=== PATIENT | male | born 1965 | race African-American/Black ===

== ENCOUNTER 2022-05-17 13:23 | Inpatient (IN) | payer MEDICARE, MEDICAID ==
[~2022-05-17] VITALS: Ht 195.6 cm; Wt 74.9 kg
[2022-05-17] MEDS ORDERED: METHYLPREDNISOLONE SOD SUCC 125 MG/2 ML VIAL IV STA (14:21)
[2022-05-17] MEDS ORDERED: IPRATROPIUM BROMIDE (0.02%) 0.5MG/2.5ML NEB HHN STA (14:21)
[2022-05-17] MEDS ORDERED: AZITHROMYCIN 500MG/250ML 250 ML IV ONE (14:30)
[2022-05-17] MEDS ORDERED: SODIUM CHLORIDE 0.9% 1000ML BAG (SEPSIS BOLUS) IV ONE (14:30)
[2022-05-17] MEDS ORDERED: CEFTRIAXONE 1 G PREMIX 50 ML IV ONE (14:30)
[2022-05-17] MEDS ORDERED: MAGNESIUM 2 G PREMIX 50 ML IV ONE (14:30)
[2022-05-17] MEDS ORDERED: ALBUTEROL (0.083%) 2.5MG/3ML NEB HHN SCH (14:30)
[2022-05-17 15:16] LABS: BG CARBOXYHEMOGLOBIN 0.7 % (0.5-1.5); BG DEOXYHEMOGLOBIN 0.7 % (0.0-5.0); BG FRACTION INSPIRED OXYGEN 80; BG HCO3 ACT 21.5 mmol/L (22.0-26.0); BG METHEMOGLOBIN 0.6 % (0.0-1.5); BG OXYGEN SATURATION 99.3 % (92.0-98.5); BG PCO2 44.9 mmHg (35.0-45.0); BG PH 7.298 (7.350-7.450); BG PO2 235.8 mmHg (75.0-100.0); BG SAMPLE SITE RIGHT BRACHIAL; BG TOTAL HEMOGLOBIN 17.9 g/dL (12.0-18.0); BG VENT MODE MASK - BIPAP
[2022-05-17 16:38] LABS: HEMATOCRIT. 52.1 % (42.0-52.0); HEMOGLOBIN. 17.3 g/dL (14.0-18.0); MEAN CORPUSCULAR HEMOGLOBIN 31.6 pg (28.0-32.0); MEAN CORPUSCULAR VOLUME 95.1 fL (80.0-94.0); MEAN PLATELET VOLUME 6.8 fl (7.4-10.4); PLATELET 299 x1000/uL (130-400); RED BLOOD CELL COUNT 5.48 mill/uL (4.7-6.1); RED CELL DISTRIBUTION WIDTH 14.2 % (11.6-14.6)
[2022-05-17] MEDS ORDERED: METHYLPREDNISOLONE SOD SUCC 125 MG/2 ML VIAL IV SCH (16:45)
[2022-05-17] MEDS ORDERED: CEFTRIAXONE 1 G PREMIX 50 ML IV SCH (16:45)
[2022-05-17] MEDS ORDERED: AZITHROMYCIN 500MG/250ML 250 ML IV SCH (16:45)
[2022-05-17 16:46] LABS: CHLORIDE 107 mEq/L (98-107)
[2022-05-17 17:14] LABS: PLATELET ESTIMATE NORMAL
[2022-05-17] MEDS ORDERED: ASPIRIN 81MG TABLET PO ONE (17:45)
[2022-05-17] MEDS ORDERED: ENOXAPARIN 100MG/ML SYR SUBCUT NR (17:45)
[2022-05-18] VITALS (9 sets, daily range): BP systolic 115–148; BP diastolic 43–105
[2022-05-18] MEDS ORDERED: MORPHINE SULFATE 2 MG/ML CPJ (NOT FOR IM USE) IV PRN (01:15)
[2022-05-18] MEDS: ISOSORBIDE MONONITRATE 30MG TABLET SR 24HR PO SCH ×2 (02:43→08:46)
[2022-05-18] MEDS: METOPROLOL TARTRATE 25MG TABLET PO SCH ×3 (02:44→16:45)
[2022-05-18] MEDS: ASPIRIN 81MG TABLET PO SCH ×2 (02:44→08:46)
[2022-05-18 03:54] LABS: BASOPHILS % 0.2 % (0.0-2.0); EOSINOPHILS % 0.1 % (0.0-5.0); HEMATOCRIT. 43.8 % (42.0-52.0); HEMOGLOBIN. 14.9 g/dL (14.0-18.0); LYMPHOCYTES % 9.7 % (20.0-50.0); MEAN CORPUSCULAR HEMOGLOBIN 31.8 pg (28.0-32.0); MEAN CORPUSCULAR VOLUME 93.7 fL (80.0-94.0); MEAN PLATELET VOLUME 7.1 fl (7.4-10.4); MONOCYTES % 2.7 % (2.0-8.0); NEUTROPHILS % 87.3 % (40.0-76.0); PLATELET 261 x1000/uL (130-400); RED BLOOD CELL COUNT 4.68 mill/uL (4.7-6.1); RED CELL DISTRIBUTION WIDTH 14.1 % (11.6-14.6)
[2022-05-18 04:12] LABS: INR 1.1; PROTHROMBIN TIME 11.9 sec (9.6-11.0)
[2022-05-18] MEDS ORDERED: NITROGLYCERIN 50MCG/ML 10ML VIAL (CATH LAB) IV ONE (07:33)
[2022-05-18] MEDS ORDERED: NICARDIPINE 100MCG/ML 10ML VIAL (CATH LAB) IV ONE (07:33)
[2022-05-18] MEDS ORDERED: ENOXAPARIN 80MG/0.8ML SYR SUBCUT SCH (09:00)
[2022-05-18] MEDS ORDERED: NALOXONE HCL 0.4MG/ML VIAL IV PRN (10:30)
[2022-05-18] MEDS: NITROGLYCERIN OINT 1GM/INCH UDPKT TD SCH ×3 (10:53→21:23)
[2022-05-18] MEDS: AMLODIPINE 2.5MG TABLET PO SCH ×2 (11:00→21:23)
[2022-05-18] MEDS ORDERED: ALBUTEROL (0.083%) 2.5MG/3ML NEB HHN SCH (12:00)
[2022-05-18] MEDS ORDERED: IPRATROPIUM BROMIDE (0.02%) 0.5MG/2.5ML NEB HHN SCH (12:00)
[2022-05-18] MEDS: IPRATROPIUM/ALBUTEROL 0.5-3(2.5)MG/3ML NEB HHN SCH ×2 (12:59→21:41)
[2022-05-18] MEDS ORDERED: IODIXANOL 320MG/ML 100 ML BOTTLE IV ONE (13:45)
[2022-05-18] MEDS ORDERED: HEPARIN 1000 UNITS/ML 10ML ONE (13:45)
[2022-05-18] MEDS ORDERED: LIDOCAINE HCL/PF 1% 10 MG/ML 5ML VIAL ONE (13:45)
[2022-05-18] MEDS ORDERED: FENTANYL CITRATE/PF 50MCG/ML 2ML VIAL ONE (13:59)
[2022-05-18] MEDS ORDERED: MIDAZOLAM HCL 2 MG/2 ML VIAL ONE (13:59)
[2022-05-18] MEDS ORDERED: LIDOCAINE HCL 1% 20ML VIAL (Pyxis) INJ ONE (14:12)
[2022-05-18] MEDS ORDERED: ACETAMINOPHEN 325MG TABLET PO PRN (14:45)
[2022-05-18] MEDS ORDERED: ATROPINE SULFATE 1MG/10ML SYR IV PRN (14:45)
[2022-05-18 15:20] LABS: *AMPHETAMINES SCREEN URINE NEGATIVE (NEGATIVE); *BARBITURATES SCREEN URINE NEGATIVE (NEGATIVE); *BENZODIAZEPINES SCREEN URINE NEGATIVE (NEGATIVE); *COCAINE SCREEN URINE NEGATIVE (NEGATIVE); CANNABINOID URINE SCREEN PRESUMTIVE POSITIVE (NEGATIVE); METHADONE URINE SCREEN NEGATIVE (NEGATIVE); OPIATES URINE SCREEN NEGATIVE (NEGATIVE); PHENCYCLIDINE URINE SCREEN NEGATIVE (NEGATIVE)
[2022-05-18] MEDS: ATORVASTATIN CALCIUM 40MG TABLET PO SCH (21:23)
[2022-05-18] MEDS: ENOXAPARIN 80MG/0.8ML SYR SUBCUT SCH (21:24)
[2022-05-19] VITALS: BP 133/87
[2022-05-19] MEDS: IPRATROPIUM/ALBUTEROL 0.5-3(2.5)MG/3ML NEB HHN SCH ×4 (01:27→19:58)
[2022-05-19 04:00] VITALS: BP 133/74
[2022-05-19 05:46] LABS: CHLORIDE 104 mEq/L (98-107)
[2022-05-19] MEDS: NITROGLYCERIN OINT 1GM/INCH UDPKT TD SCH ×3 (06:07→21:35)
[2022-05-19] MEDS: PANTOPRAZOLE 40MG DR TABLET PO SCH (06:08)
[2022-05-19 06:26] LABS: BASOPHILS % 0.1 % (0.0-2.0); EOSINOPHILS % 0.1 % (0.0-5.0); HEMATOCRIT. 37.3 % (42.0-52.0); HEMOGLOBIN. 12.7 g/dL (14.0-18.0); LYMPHOCYTES % 17.9 % (20.0-50.0); MEAN CORPUSCULAR HEMOGLOBIN 32.1 pg (28.0-32.0); MEAN PLATELET VOLUME 7.3 fl (7.4-10.4); MONOCYTES % 6.5 % (2.0-8.0); NEUTROPHILS % 75.4 % (40.0-76.0); PLATELET 223 x1000/uL (130-400); RED BLOOD CELL COUNT 3.96 mill/uL (4.7-6.1); RED CELL DISTRIBUTION WIDTH 14.4 % (11.6-14.6)
[2022-05-19 08:00] VITALS: BP 133/84
[2022-05-19] MEDS: ASPIRIN 81MG TABLET PO SCH (08:47)
[2022-05-19] MEDS: FOLIC ACID 1MG TABLET PO SCH (08:47)
[2022-05-19] MEDS: METOPROLOL TARTRATE 25MG TABLET PO SCH ×2 (08:47→17:46)
[2022-05-19] MEDS: AMLODIPINE 2.5MG TABLET PO SCH ×2 (08:47→21:33)
[2022-05-19] MEDS: ENOXAPARIN 80MG/0.8ML SYR SUBCUT SCH ×2 (08:47→21:34)
[2022-05-19 12:00] VITALS: BP 120/83
[2022-05-19 16:00] VITALS: BP 150/103
[2022-05-19 20:00] VITALS: BP 114/73
[2022-05-19] MEDS: ATORVASTATIN CALCIUM 40MG TABLET PO SCH (21:31)
[2022-05-20] VITALS: BP 152/95
[2022-05-20] MEDS: IPRATROPIUM/ALBUTEROL 0.5-3(2.5)MG/3ML NEB HHN SCH ×4 (01:30→21:44)
[2022-05-20 04:00] VITALS: BP 152/95
[2022-05-20 06:47] LABS: BASOPHILS % 0.5 % (0.0-2.0); EOSINOPHILS % 0.4 % (0.0-5.0); HEMATOCRIT. 40.6 % (42.0-52.0); HEMOGLOBIN. 13.8 g/dL (14.0-18.0); LYMPHOCYTES % 26.5 % (20.0-50.0); MEAN CORPUSCULAR HEMOGLOBIN 31.9 pg (28.0-32.0); MEAN CORPUSCULAR VOLUME 93.9 fL (80.0-94.0); MEAN PLATELET VOLUME 7.5 fl (7.4-10.4); MONOCYTES % 7.9 % (2.0-8.0); NEUTROPHILS % 64.7 % (40.0-76.0); PLATELET 197 x1000/uL (130-400); RED BLOOD CELL COUNT 4.32 mill/uL (4.7-6.1); RED CELL DISTRIBUTION WIDTH 14.4 % (11.6-14.6)
[2022-05-20] MEDS: PANTOPRAZOLE 40MG DR TABLET PO SCH (06:54)
[2022-05-20] MEDS: NITROGLYCERIN OINT 1GM/INCH UDPKT TD SCH ×3 (06:59→20:29)
[2022-05-20 07:06] LABS: CHLORIDE 104 mEq/L (98-107); D-DIMER 4.12 mg/L FEU (<0.50); INR 1.1; PARTIAL THROMBOPLASTIN TIME 33.2 sec (23.4-31.0); PROTHROMBIN TIME 11.9 sec (9.6-11.0)
[2022-05-20 08:00] VITALS: BP 153/84
[2022-05-20] MEDS: AMLODIPINE 2.5MG TABLET PO SCH ×2 (09:50→20:29)
[2022-05-20] MEDS: METOPROLOL TARTRATE 25MG TABLET PO SCH ×2 (09:50→17:56)
[2022-05-20] MEDS: FOLIC ACID 1MG TABLET PO SCH (09:50)
[2022-05-20] MEDS: ASPIRIN 81MG TABLET PO SCH (09:50)
[2022-05-20] MEDS: ENOXAPARIN 80MG/0.8ML SYR SUBCUT SCH ×2 (09:50→20:29)
[2022-05-20 12:00] VITALS: BP 157/104
[2022-05-20 16:00] VITALS: BP 147/87
[2022-05-20 20:22] VITALS: BP 155/107
[2022-05-20] MEDS: ATORVASTATIN CALCIUM 40MG TABLET PO SCH (20:29)
[2022-05-21 00:09] VITALS: BP 148/86
[2022-05-21] MEDS: IPRATROPIUM/ALBUTEROL 0.5-3(2.5)MG/3ML NEB HHN SCH ×4 (01:15→13:32)
[2022-05-21 04:11] VITALS: BP 149/95
[2022-05-21] MEDS: PANTOPRAZOLE 40MG DR TABLET PO SCH (06:33)
[2022-05-21] MEDS: NITROGLYCERIN OINT 1GM/INCH UDPKT TD SCH ×3 (06:33→22:00)
[2022-05-21] MEDS: FOLIC ACID 1MG TABLET PO SCH (07:47)
[2022-05-21] MEDS: ENOXAPARIN 80MG/0.8ML SYR SUBCUT SCH ×2 (07:47→20:31)
[2022-05-21] MEDS: ASPIRIN 81MG TABLET PO SCH (07:47)
[2022-05-21] MEDS: AMLODIPINE 2.5MG TABLET PO SCH (07:47)
[2022-05-21] MEDS: METOPROLOL TARTRATE 25MG TABLET PO SCH ×2 (07:48→17:53)
[2022-05-21 08:00] VITALS: BP 170/102
[2022-05-21 12:00] VITALS: BP 176/113
[2022-05-21] MEDS: HYDRALAZINE HCL 50MG TABLET PO SCH ×2 (13:21→20:32)
[2022-05-21 16:00] VITALS: BP 165/99
[2022-05-21 20:00] VITALS: BP 139/91
[2022-05-21] MEDS: ATORVASTATIN CALCIUM 40MG TABLET PO SCH (20:31)
[2022-05-21] MEDS: AMLODIPINE 5MG TABLET PO SCH (20:32)
[2022-05-22] VITALS: BP 138/92
[2022-05-22] MEDS: IPRATROPIUM/ALBUTEROL 0.5-3(2.5)MG/3ML NEB HHN SCH ×5 (02:24→22:09)
[2022-05-22 04:00] VITALS: BP 149/100
[2022-05-22] MEDS: PANTOPRAZOLE 40MG DR TABLET PO SCH (06:13)
[2022-05-22] MEDS: NITROGLYCERIN OINT 1GM/INCH UDPKT TD SCH ×3 (06:15→21:35)
[2022-05-22 07:39] VITALS: BP 140/102
[2022-05-22] MEDS: HYDRALAZINE HCL 50MG TABLET PO SCH ×2 (08:05→16:58)
[2022-05-22] MEDS: METOPROLOL TARTRATE 25MG TABLET PO SCH ×2 (08:06→16:57)
[2022-05-22] MEDS: FOLIC ACID 1MG TABLET PO SCH (08:06)
[2022-05-22] MEDS: AMLODIPINE 5MG TABLET PO SCH ×2 (08:06→21:34)
[2022-05-22 12:12] VITALS: BP 158/95
[2022-05-22] MEDS: ENOXAPARIN 80MG/0.8ML SYR SUBCUT SCH ×2 (12:27→21:34)
[2022-05-22] MEDS: ASPIRIN 81MG TABLET PO SCH (12:27)
[2022-05-22 17:08] VITALS: BP 145/92
[2022-05-22] MEDS ORDERED: LACTULOSE 20G/30ML UDC PO NR (19:00)
[2022-05-22 20:00] VITALS: BP 127/76
[2022-05-22] MEDS: ATORVASTATIN CALCIUM 40MG TABLET PO SCH (21:34)
[2022-05-23] VITALS (13 sets, daily range): BP systolic 128–155; BP diastolic 72–97
[2022-05-23] MEDS: NITROGLYCERIN OINT 1GM/INCH UDPKT TD SCH ×2 (06:22→14:00)
[2022-05-23] MEDS: PANTOPRAZOLE 40MG DR TABLET PO SCH (06:23)
[2022-05-23] MEDS ORDERED: IODIXANOL 320MG/ML 100 ML BOTTLE IV ONE (07:26)
[2022-05-23] MEDS ORDERED: HEPARIN 1000 UNITS/ML 10ML ONE (07:26)
[2022-05-23] MEDS ORDERED: LIDOCAINE HCL 1% 20ML VIAL (Pyxis) INJ ONE (07:27)
[2022-05-23] MEDS ORDERED: LIDOCAINE HCL/PF 1% 10 MG/ML 5ML VIAL ONE (07:34)
[2022-05-23] MEDS ORDERED: DIPHENHYDRAMINE 50MG/ML VIAL ONE (07:34)
[2022-05-23] MEDS ORDERED: MIDAZOLAM HCL 2 MG/2 ML VIAL ONE (08:02)
[2022-05-23] MEDS ORDERED: FENTANYL CITRATE/PF 50MCG/ML 2ML VIAL ONE (08:02)
[2022-05-23] MEDS: FOLIC ACID 1MG TABLET PO SCH (09:00)
[2022-05-23] MEDS ORDERED: DOCUSATE SODIUM 250MG CAPSULE PO SCH (09:00)
[2022-05-23] MEDS ORDERED: ACETAMINOPHEN 325MG TABLET PO PRN (09:15)
[2022-05-23] MEDS ORDERED: ATROPINE SULFATE 1MG/10ML SYR IV PRN (09:15)
[2022-05-23 09:26] LABS: BASOPHILS % 1.1 % (0.0-2.0); EOSINOPHILS % 0.9 % (0.0-5.0); HEMATOCRIT. 40.7 % (42.0-52.0); HEMOGLOBIN. 13.8 g/dL (14.0-18.0); LYMPHOCYTES % 16.4 % (20.0-50.0); MEAN CORPUSCULAR HEMOGLOBIN 32.1 pg (28.0-32.0); MEAN CORPUSCULAR VOLUME 94.3 fL (80.0-94.0); MEAN PLATELET VOLUME 7.9 fl (7.4-10.4); MONOCYTES % 10.7 % (2.0-8.0); NEUTROPHILS % 70.9 % (40.0-76.0); PLATELET 184 x1000/uL (130-400); RED BLOOD CELL COUNT 4.32 mill/uL (4.7-6.1); RED CELL DISTRIBUTION WIDTH 13.8 % (11.6-14.6)
[2022-05-23 09:38] LABS: CHLORIDE 102 mEq/L (98-107)
[2022-05-23] MEDS: HYDRALAZINE HCL 50MG TABLET PO SCH ×2 (10:32→17:00)
[2022-05-23] MEDS: AMLODIPINE 5MG TABLET PO SCH (10:33)
[2022-05-23] MEDS: METOPROLOL TARTRATE 25MG TABLET PO SCH ×2 (10:33→17:00)
[2022-05-23] MEDS: ASPIRIN 81MG TABLET PO SCH (10:33)
[2022-05-23] MEDS: ENOXAPARIN 80MG/0.8ML SYR SUBCUT SCH (10:34)
[2022-05-23] MEDS ORDERED: AMLO5TAB88 PO (11:51)
[2022-05-23] MEDS ORDERED: HYDR100T26 MT (11:51)
[2022-05-23] MEDS: IPRATROPIUM/ALBUTEROL 0.5-3(2.5)MG/3ML NEB HHN SCH (13:19)
[2022-05-23] MEDS ORDERED: ENOXAPARIN 80MG/0.8ML SYR SUBCUT SCH (21:00)
[2022-05-24] MEDS ORDERED: FAMOTIDINE 20MG TABLET PO SCH (09:00)
== END 2022-05-23 18:55 | disposition home or self-care (01) | DRG 280 ==
LOC: ER 13:23 → MICUSO 16:29 → EDBEDREQ 16:37 → EDBEDREQTM 16:37 → 3WST 21:34
PROVIDERS: ADMIT Internal Medicine; ATTEND Internal Medicine
PROC: 5A09357 Assistance with Respiratory Ventilation, Less than 24 Consecutive Hours, Continuous Positive Airway Pressure (ICD-10-PCS; principal; 2022-05-17)
PROC: 4A023N7 Measurement of Cardiac Sampling and Pressure, Left Heart, Percutaneous Approach (ICD-10-PCS; 2022-05-18)
PROC: B2111ZZ Fluoroscopy of Multiple Coronary Arteries using Low Osmolar Contrast (ICD-10-PCS; 2022-05-18)
PROC: B2151ZZ Fluoroscopy of Left Heart using Low Osmolar Contrast (ICD-10-PCS; 2022-05-18)
PROC: B519ZZA Fluoroscopy of Inferior Vena Cava, Guidance (ICD-10-PCS; 2022-05-23)
PROC: B51BZZA Fluoroscopy of Right Lower Extremity Veins, Guidance (ICD-10-PCS; 2022-05-23)
PROC: B51CZZA Fluoroscopy of Left Lower Extremity Veins, Guidance (ICD-10-PCS; 2022-05-23)
DX: I21.4 Non-ST elevation (NSTEMI) myocardial infarction (principal); I26.99 Other pulmonary embolism without acute cor pulmonale; J96.01 Acute respiratory failure with hypoxia; I82.403 Acute embolism and thrombosis of unspecified deep veins of lower extremity, bilateral; J44.1 Chronic obstructive pulmonary disease with (acute) exacerbation; J98.11 Atelectasis; F17.200 Nicotine dependence, unspecified, uncomplicated; F10.10 Alcohol abuse, uncomplicated; D72.829 Elevated white blood cell count, unspecified; Z20.822 Contact with and (suspected) exposure to COVID-19; I27.20 Pulmonary hypertension, unspecified; Z53.9 Procedure and treatment not carried out, unspecified reason; I07.1 Rheumatic tricuspid insufficiency; F17.210 Nicotine dependence, cigarettes, uncomplicated; Z79.01 Long term (current) use of anticoagulants
CPT/HCPCS: 36245; 36415; 36600; 71045; 71275; 75820; 80048; 80053; 80061; 80305; 82375; 82805; 83036; 83605; 83880; 84145; 84484; 85025; 85379; 87426; 87804; 93005; 93306; 93458; 93970; 94640; 94660; 99291; C1760; C1769; C1887; C1893; C1894; J0456; J0696; J1200; J1644; J1650; J2250; J2930; J3010; J3475; J3490; J7030; Q9967